=== PATIENT | male | born 1985 | race Caucasian/White ===

== ENCOUNTER 2022-08-04 09:13 | Emergency (ER) | payer MEDICAID ==
[~2022-08-04] VITALS: Ht 172.7 cm; Wt 90.7 kg
[2022-08-04 09:28] VITALS: BP_SYST 140
--- NOTE | 2022-08-04 09:30 | NUR ---
COVID-19 ADAM AND INFLUENZA SWABS OBTAINED, LABELED, AND SENT TO THE LAB.
[2022-08-04] MEDS ORDERED: IBUP-1969 PO (09:38)
[2022-08-04] MEDS ORDERED: PENI500T PO (09:38)
--- NOTE | 2022-08-04 09:39 | NUR ---
DR HARTLEY IN TENT FOR EXAM
--- NOTE | 2022-08-04 09:48 | NUR ---
Patient given written and verbal discharge instructions and verbalizes understanding. ER MD discussed with patient the results and treatment provided. Patient in stable condition. ID arm band removed. Rx of IBUPROFEN, PCN TAB given. Patient educated on pain management and to follow up with PMD. Pain Scale . Opportunity for questions provided and answered. Medication side effect fact sheet provided.
[2022-08-04 09:51] VITALS: BP_SYST 140
[2022-08-04] MEDS ORDERED: PENICILLIN V POTASSIUM 250 MG TABLET PO ONE (10:00)
== END 2022-08-04 09:48 | disposition home or self-care (01) ==
LOC: SED 09:13
DX: J36 Peritonsillar abscess (principal); R05.9 Cough, unspecified; R50.9 Fever, unspecified; Z79.899 Other long term (current) drug therapy; Z20.822 Contact with and (suspected) exposure to COVID-19
CPT/HCPCS: 36415; 99283

== ENCOUNTER 2022-09-15 14:29 | Emergency (ER) | payer MEDICAID ==
[~2022-09-15] VITALS: Ht 172.7 cm; Wt 86.2 kg
[~2022-09-15 14:29] MED LIST: IBUP-1969 PO; PENI500T PO
[2022-09-15 14:37] VITALS: BP_SYST 113
--- NOTE | 2022-09-15 14:40 | NUR ---
Patient to ER bed H1 to gown for evaluation. Side rails up. Report given to .
--- NOTE | 2022-09-15 14:42 | NUR ---
ER at bedside examining patient.
--- NOTE | 2022-09-15 14:52 | NUR ---
ISAAC FREEMAN FOR MED CLEARANCE. PT C/C OF CHEST PAIN, NONRADIATING. PT STATED IT STARTED YESTERDAY AND PROGRESSING. PT STATED HE WAS ON HIS COUCH WATCHING TV WHEN PAIN STARTED. PT ADMITS TO COCAINE USE 1 DAY PRIOR. REPORTS HX OF ANXIETY. PENDING TEST RESULTS.
[2022-09-15 15:21] LABS: BASOPHILS # (AUTO) 0.1 K/uL (0.0-0.2); BASOPHILS % (AUTO) 0.7 % (0.0-2.0); EOSINOPHILS % (AUTO) 0.5 % (0.0-4.0); HEMATOCRIT 38.2 % (36-54); HEMOGLOBIN 13.5 g/dL (14.0-18.0); LYMPHOCYTES # (AUTO) 2.2 K/uL (1.0-5.5); LYMPHOCYTES % (AUTO) 21.1 % (20.5-51.5); MEAN CORPUSCULAR HEMOGLOBIN 28 pg (27-31); MEAN CORPUSCULAR HGB CONC 35 % (32-36); MEAN CORPUSCULAR VOLUME 79 fL (79.0-98.0); MONOCYTES # (AUTO) 0.8 K/uL (0.0-1.0); MONOCYTES % (AUTO) 8.2 % (1.7-9.3); NEUTROPHILS # (AUTO) 7.1 K/uL (1.8-7.7); NEUTROPHILS % (AUTO) 69.5 % (40.0-70.0); PLATELET COUNT (AUTO) 277 K/uL (130-430); RED BLOOD CELL COUNT(AUTO) 4.82 MIL/uL (4.2-6.2); RED CELL DISTRIBUTION WIDTH 13.2 % (9.0-15.0); WHITE BLOOD COUNT (AUTO) 10.2 K/uL (4.8-10.8)
[2022-09-15 15:31] LABS: ALANINE AMINOTRANSFERASE 20 U/L (12-78); ALBUMIN 3.3 g/dL (3.4-4.8); ANION GAP 10 (5-15); ASPARTATE AMINOTRANSFERASE 24 U/L (10-37); CALCIUM 8.7 mg/dL (8.4-11.0); CHLORIDE 103 mmol/L (98-107); CREATININE 0.93 mg/dL (0.55-1.30); TOTAL BILIRUBIN 0.9 mg/dL (0.0-1.0); UREA NITROGEN, BLOOD 10 mg/dL (8-21)
[2022-09-15 15:33] LABS: GFR AFRICAN AMERICAN 119 mL/min (>90)
[2022-09-15 15:34] LABS: GLUCOSE 103 mg/dL (70-99)
--- NOTE | 2022-09-15 15:38 | NUR ---
12L EKG DONE. DR. CERVANTES AWARE. C/O HUNGER. SANDWICH GIVEN WITH JUICE. PT TOLERATED WELL WITHOUT N/V. PENDING LAB RESULTS. WILL MONITOR.
[2022-09-15 15:51] VITALS: BP_SYST 100
--- NOTE | 2022-09-15 15:53 | NUR ---
PT CLEARED FOR DC. VSS, AFEBRILE. NAD NOTED. DENIES ANY FURTHER CHEST PAIN. PT CLEARED FOR BOOKING BY DR. CERVANTES. PT VERBALIZED UNDERSTANDING OF DC INSTRUCTIONS. PT AMBULATED OUT OF ED IN STABLE CONDITION IN CUSTODY.
== END 2022-09-15 15:51 | disposition home or self-care (01) ==
LOC: SED 14:29
DX: Z02.89 Encounter for other administrative examinations (principal); R07.2 Precordial pain; Z88.5 Allergy status to narcotic agent; F14.10 Cocaine abuse, uncomplicated; Z79.899 Other long term (current) drug therapy
CPT/HCPCS: 36415; 71045; 80053; 84484; 85025; 93005; 99285